=== PATIENT | female | born 1990 | race Two or more races ===

== ENCOUNTER 2022-02-28 17:01 | Emergency (ER) | payer OTHER, SELFPAY ==
[2022-02-28 17:06] VITALS: BP 177/77; PULSE 64; RESP 18; TEMP 36.9; O2SAT 98; BMI 29.2
== END 2022-02-28 20:16 | disposition left against medical advice (07) ==
PROVIDERS: Emergency Provider Emergency Medicine; PCP Psychiatry & Neurology Psychiatry
DX: R07.9 Chest pain, unspecified (principal)
CPT/HCPCS: 99281